=== PATIENT | female | born 1950 | race African-American/Black ===

== ENCOUNTER 2020-04-01 18:50 | Inpatient (IN) | payer MEDICARE, MEDICAID ==
[2020-04-01] MEDS ORDERED: RINGERS SOLUTION,LACTATED 1,000 ML IV ONE (18:55)
--- NOTE | 2020-04-01 19:01 | ER Document Report ---
ED General - General Stated Complaint: HIGH BLOOD SUGAR Time Seen by Provider: 04/01/20 18:55 Primary Care Provider: ANGELO MADDOX MD [NO LOCAL MD] - Follow up as needed Notes: This is a 69-year-old female brought in from [facility] with 3 days of worsening altered mental status" suspected sepsis." EMS states she is been hypotensive and they have established a 22-gauge IV and given 200 of fluid. They attempted an IV at the facility but infiltrated so she received subcutaneous fluids. Based on the front page of her packet from the facility her sodium was measured at 161 in the presence of a glucose of 800 within the last 24 hours. She is unable to give any history but has a DNR form in her packet. TRAVEL OUTSIDE OF THE [place] IN LAST 30 DAYS: No - Related Data Allergies/Adverse Reactions: PPD black rubber mix Allergy (Verified 06/13/18 20:50) Past Medical History - General Information source: Emergency Med Personnel - Social History Smoking Status: Unknown if Ever Smoked Family History: Other - Unobtainable - Past Medical History Cardiac Medical History: Reports: Hx Hypertension Endocrine Medical History: Reports: Hx Diabetes Mellitus Type 2 Renal/ Medical History: Denies: Hx Peritoneal Dialysis Psychiatric Medical History: Reports: Hx Dementia, Hx Depression Review of Systems - Review of Systems Notes: REVIEW OF SYSTEMS Mental status PHYSICAL EXAMINATION General: Ill-appearing Head: Atraumatic, normocephalic ENT: Mouth normal, oropharynx moist, no exudates or tonsillar enlargement Eyes: Conjunctiva normal, pupils equal, lids normal Neck: No JVD, supple, no guarding CVS: Tachycardic. Slightly pale. Resp: No resp distress, equal and normal breath sounds bilaterally GI: Nondistended, soft, no tenderness to palpation, no rebound or guarding Ext: No deformities, no edema, normal range of motion in upper and lower ext Back: No CVA or midline TTP Skin: Decreased turgor Lymphatic: No lymphadeopathy noted Neuro: Kal's and nods off. Face appears symmetric but is not following commands. Opens eyes to loud voice and does not speak. Physical Exam - Vital signs Vitals: Pulse Ox 93 04/01/20 21:20 Course - Re-evaluation Re-evalutation: 04/01/20 19:01 Elderly female patient with likely diabetes presents with dehydration hypotension hyperglycemia hyponatremia which may be severe and to be leading to cerebral edema. Dehydration and sepsis are still in the differential. Will check full attempt to decide if antibiotics are indicated but until then will get aggressive IV access and fluids. Hypotension is severe enough to require resuscitation without regard for sodium overcorrection and resultant complication. 04/01/20 22:57 Sugar going up despite fluid and insulin. Urine, which took at least 2 and half hours to obtain does show infection, so at this time I will diagnose her with sepsis, give antibiotics and culture her. She is hemodynamically stable at this time. Potassium is normal and may drop further with insulin. I discussed her with Dr. Mariee from the hospitalist service, and we together agreed to try insulin boluses, because there is no space in the hospital to run an insulin drip. He will write inpatient orders and asked the ED nurses to go from there. - Vital Signs Vital signs: Temp Pulse Resp BP Pulse Ox 96 04/01/20 22:52 - Laboratory Result Diagrams: 04/01/20 21:04 04/01/20 19:30 Laboratory results interpreted by me: 04/01/20 04/01/20 04/01/20 19:15 19:30 19:30 RBC Hct MCV MCH MCHC RDW Plt Count PT 20.4 H VBG pH Sodium 149.5 H Chloride 122 H Carbon Dioxide 18 L BUN 83 H Creatinine 2.73 H Est GFR ( Amer) 21 L Est GFR (MDRD) Non-Af 17 L Glucose 715 H* POC Glucose Serum Osmolality Lactic Acid 3.6 H Calcium 8.0 L ALT 46 H Total Protein 6.0 L Albumin 2.6 L Urine Protein Urine Glucose (UA) Urine Blood Urine Urobilinogen Ur Leukocyte Esterase Urine Ascorbic Acid 04/01/20 04/01/20 04/01/20 19:30 21:04 21:04 RBC Hct MCV MCH MCHC RDW Plt Count PT VBG pH 7.24 L Sodium Chloride Carbon Dioxide BUN Creatinine Est GFR ( Amer) Est GFR (MDRD) Non-Af Glucose POC Glucose Serum Osmolality 384 H Lactic Acid 3.9 H Calcium ALT Total Protein Albumin Urine Protein Urine Glucose (UA) Urine Blood Urine Urobilinogen Ur Leukocyte Esterase Urine Ascorbic Acid 04/01/20 04/01/20 04/01/20 21:04 22:29 22:42 RBC 6.51 H Hct 50.0 H MCV 77 L MCH 23.8 L MCHC 31.0 L RDW 17.7 H Plt Count 102 L PT VBG pH Sodium Chloride Carbon Dioxide BUN Creatinine Est GFR ( Amer) Est GFR (MDRD) Non-Af Glucose POC Glucose > 550 H* Serum Osmolality Lactic Acid Calcium ALT Total Protein Albumin Urine Protein 100 H Urine Glucose (UA) >=500 H Urine Blood LARGE H Urine Urobilinogen 2.0 H Ur Leukocyte Esterase LARGE H Urine Ascorbic Acid 40 H Critical Care Note - Critical Care Note Total time excluding time spent on procedures (mins): 34 Comments: The above patient is critically ill. Not including procedures, but including direct re-evaluations, speaking with patient and/or consultants, interpreting results, and documenting, I spent the total amount of minute listed listed above on critical care time Discharge - Discharge Clinical Impression: Hypernatremia Sepsis Qualifiers: Sepsis type: sepsis due to unspecified organism Sepsis acute organ dysfunction status: unspecified Qualified Code(s): A41.9 - Sepsis, unspecified organism Condition: Fair Disposition: ADMITTED INPATIENT Unit Admitted: Medical Floor Referrals: ANGELO MADDOX MD [NO LOCAL MD] - Follow up as needed
[2020-04-01 19:57] LABS: INTERNATIONAL RATION (INR) 1.72; PROTHROMBIN TIME 20.4 SEC (11.4-15.4)
[2020-04-01 20:06] LABS: ALBUMIN 2.6 g/dL (3.5-5.0); ALKALINE PHOSPHATASE 100 U/L (38-126); ANION GAP 10 (5-19); ASPARTATE AMINO TRANSFERASE 32 U/L (14-36); BILIRUBIN,TOTAL 0.4 mg/dL (0.2-1.3); BLOOD UREA NITROGEN 83 mg/dL (7-20); CARBON DIOXIDE 18 mmol/L (22-30); CHLORIDE 122 mmol/L (98-107); POTASSIUM 4.6 mmol/L (3.6-5.0)
[2020-04-01 20:17] LABS: GLUCOSE 715 mg/dL (75-110)
--- NOTE | 2020-04-01 20:26 | RADIOLOGY REPORT (SQ) ---
INDICATION: Blood sugar suspect cerebral edema. COMPARISON: None CORRELATION: None TECHNIQUE: Noncontrast spiral axial CT images were obtained from the skull base to vertex. This exam was performed according to our departmental dose-optimization program, which includes automated exposure control, adjustment of the mA and/or kV according to patient size and/or use of iterative reconstruction techniques. Suboptimal positioning. Best possible images were obtained FINDINGS: There is no evidence of acute intracranial hemorrhage, midline shift, mass effect or mass lesion. Warren-white differentiation is normal. There is no evidence of acute large territory infarct. Age-related involutional changes are identified. Presumed old small vessel ischemic changes are seen predominantly in a periventricular distribution.. Vascular calcification The visualized paranasal sinuses are grossly clear. The orbits and eyeballs are unremarkable. The mastoid air cells are clear. Skull base and calvarium appear intact. IMPRESSION: No acute intracranial process is identified. Age-related involutional changes are identified. Presumed old small vessel ischemic changes are seen predominantly in a periventricular distribution.
--- NOTE | 2020-04-01 20:33 | EKG REPORT ---
SEVERITY:- ABNORMAL ECG - SINUS TACHYCARDIA LEFT ANTERIOR FASCICULAR BLOCK BORDERLINE T ABNORMALITIES, ANTERIOR LEADS : Confirmed by: Marc Varma MD 01-Apr-2020 20:32:47
[2020-04-01] MEDS ORDERED: INSULIN REG, HUMAN 100 UNIT/ML 3 ML VIAL (PYX) IV ONE ×2 (20:35→23:20)
[2020-04-01 21:21] LABS: VENOUS BLOOD BASE EXCESS -5.4 mmol/L; VENOUS BLOOD HCO3 22.6 mmol/L (20-32); VENOUS BLOOD PCO2 53.5 mmHg (35-63); VENOUS BLOOD PH 7.24 (7.30-7.42)
[2020-04-01 21:30] LABS: ABSOLUTE LYMPHOCYTES (AUTO) 2.2 10^3/uL (0.5-4.7); ABSOLUTE MONOCYTES (AUTO) 0.3 10^3/uL (0.1-1.4); BASOPHILS % (AUTO) 0.4 % (0-2); EOSINOPHILS % (AUTO) 0.2 % (0-6); HEMOGLOBIN 15.5 g/dL (12.0-15.5); LYMPHOCYTES % (AUTO) 23.4 % (13-45); MEAN CORPUSCULAR HEMOGLOBIN 23.8 pg (27.0-33.4); MEAN CORPUSCULAR VOLUME 77 fl (80-97); PLATELET COUNT 102 10^3/uL (150-450); RED BLOOD COUNT 6.51 10^6/uL (3.72-5.28); RED CELL DISTRIBUTION WIDTH 17.7 % (11.5-14.0); TOTAL CELLS COUNTED % (AUTO) 100 %; WHITE BLOOD COUNT 9.6 10^3/uL (4.0-10.5)
[2020-04-01] MEDS ORDERED: NORMAL SALINE 1000 ML 1,000 ML IV ONE (22:03)
[2020-04-01 22:50] LABS: APPEARANCE,URINE CLOUDY; BILIRUBIN,URINE NEGATIVE (NEGATIVE); COLOR,URINE AMBER; GLUCOSE, URINE >=500 mg/dL (NEGATIVE); KETONES,URINE NEGATIVE (NEGATIVE); LEUKOCYTE ESTERASE,URINE LARGE (NEGATIVE); NITRITE,URINE NEGATIVE (NEGATIVE); PROTEIN,URINE 100 mg/dL (NEGATIVE); URINE SPECIFIC GRAVITY 1.023
[2020-04-01] MEDS ORDERED: CEFTRIAXONE 1 GM/D5W RTU 1 GM/50 ML RTUPB IV ONE (22:52)
[2020-04-01 23:02] LABS: OSMOLALITY,URINE 488 mOsm/kg (300-900)
[2020-04-01 23:08] LABS: URINE SODIUM 60 mmol/L (30-90)
[2020-04-01] MEDS ORDERED: POTASSI CL 20 MEQ/NS 1L 1,000 ML IV PRN (23:14)
[2020-04-01] MEDS ORDERED: MAGNESIUM HYDROXIDE SUSP 30 ML UDCUP PO PRN (23:14)
[2020-04-01] MEDS ORDERED: ONDANSETRON HCL INJ/PF 4 MG/2 ML SDV IV PRN (23:14)
[2020-04-01] MEDS ORDERED: MAG HYDROX/AL HYDROX/SIMETH SUSP 30 ML UDCUP PO PRN (23:14)
[2020-04-01] MEDS ORDERED: GLUCAGON,HUMAN RECOMB 1 MG INJ IM PRN (23:19)
[2020-04-01] MEDS ORDERED: DEXTROSE 50%-WATER 25 GM/50 ML DISP.SYRIN IV PRN ×2 (23:19)
[2020-04-01] MEDS ORDERED: DEXTROSE 40% GEL 15 GM TUBE PO PRN ×2 (23:19)
[2020-04-01] MEDS ORDERED: NORMAL SALINE 100 ML with INSULIN REGULAR, HUMAN 100 UNIT IV PRN ×2 (23:19)
[2020-04-01] MEDS ORDERED: ACETAMINOPHEN 325 MG TABLET PO PRN (23:21)
[2020-04-01] MEDS ORDERED: GUAIFENESIN SYRP 200 MG/10 ML UDC PO PRN (23:21)
[2020-04-01] MEDS ORDERED: LORAZEPAM INJ 2 MG/1 ML VIAL IV PRN (23:21)
[2020-04-01] MEDS ORDERED: ACETAMINOPHEN 650 MG SUPP.RECT PR PRN (23:27)
[2020-04-01] MEDS ORDERED: PANTOPRAZOLE SODIUM 40 MG VIAL IV ONE (23:45)
[2020-04-02] MEDS: INSULIN REG, HUMAN 100 UNIT/ML 3 ML VIAL (PYX) SUBCUT SCH ×3 (01:28→08:28)
[2020-04-02] MEDS ORDERED: PANTOPRAZOLE SODIUM 40 MG VIAL IV ONE (02:49)
[2020-04-02] MEDS: HEPARIN SOD (PORCINE) 5,000 UNIT/ML 1 ML VIAL SUBCUT SCH ×3 (05:31→21:14)
--- NOTE | 2020-04-02 06:22 | PDOC H&P ---
History of Present Illness Admission Date/PCP: 04/01/2020 23:31 AGNES LITTLE MD Patient complains of: Altered mental status History of Present Illness: STEVENSON GORDON is a 69 year old female who [facility] the [facility] with a 3-day history of altered mental status. long term staff reports patient has been gradually less alert and more lethargic than normal ove r the last 3 days. No additional associated or accompanying signs and symptoms were reported by the nursing facility staff. Blood work was obtained at the nursing facility and the patient was found to have a sodium of 161 with a glucose of 800. She was subsequently transferred to the hospital for further evaluation and treatment. Patient has severe dementia and is unable to contribute to her medical care. She is noted to have had numerous prior similar episodes with urinary tract infections. In the emergency room she was found to have a moderate hypernatremia and severe hyperglycemia. She was noted to be non-Ketotic but her urine showed significant pyuria. Her renal functions were noted to be elevated and she was subsequently admitted to the hospital for further evaluation and treatment after initiation of serial lactic acid measurements, IV fluids, IV insulin and IV Rocephin. Patient is noted to be DNR/DNI status from her accompanying paperwork. Past Medical History Past Medical History: Due to the patient's severe dementia past medical history, past surgical history, social history and family history are obtained from the most reliable available source. Cardiac Medical History: Reports: Hypertension Denies: Atrial Fibrillation, Congestive Heart Failure, Coronary Artery Disease, Myocardial Infarction Pulmonary Medical History: Denies: Asthma, Chronic Obstructive Pulmonary Disease (COPD) EENT Medical History: Denies: Cataracts, Ears - Hearing aids Neurological Medical History: Denies: Hemorrhagic CVA, Ischemic CVA, Seizures Endocrine Medical History: Reports: Diabetes Mellitus Type 2 Denies: Diabetes Mellitus Type 1, Hyperthyroidism, Hypothyroidism Renal/ Medical History: Denies: Chronic Kidney Disease, Nephrolithiasis Malignancy Medical History: Reports: None GI Medical History: Denies: Cirrhosis, Hepatitis Musculoskeltal Medical History: Denies: Arthritis, Gout Skin Medical History: Denies: Eczema, Psoriasis Psychiatric Medical History: Reports: Dementia, Depression Denies: Alcohol Dependency, Substance Abuse, Tobacco Dependency Traumatic Medical History: Reports: None Hematology: Denies: Anemia, Bleeding Tendencies Infectious Medical History: Reports: None Past Surgical History Past Surgical History: Due to the patient's severe dementia past medical history, past surgical history, social history and family history are obtained from the most reliable available source. Past Surgical History: Reports: None Social History Information Source: Emergency Med Personnel, [facility] Records Lives with: Prison Smoking Status: Unknown if Ever Smoked Electronic Cigarette use?: No Frequency of Alcohol Use: None Hx Recreational Drug Use: No Drugs: None Hx Prescription Drug Abuse: No Past Social History Note: Due to the patient's severe dementia past medical history, past surgical history, social history and family history are obtained from the most reliable available source. - Advance Directive Resuscitation Status: Do Not Resuscitate Surrogate healthcare decision maker:: Marika Gordon Family History Family History: Other - No family history is available in current records Family History: Due to the patient's severe dementia past medical history, past surgical history, social history and family history are obtained from the most reliable available source. Parental Family History Reviewed: No Children Family History Reviewed: No Sibling(s) Family History Reviewed.: No Medication/Allergy Home Medications: Acetaminophen [Tylenol 650 mg Supp] 975 mg IL Q6HP PRN 06/13/18 Calcium Carbonate [Calcium] 600 mg PO BID 06/13/18 Lactulose [Constulose 10 gm/15 mL Oral Solution] 5 gm PO QHS MDD HOLD FOR DIARRHEA 06/13/18 Pravastatin Sodium [Pravachol] 40 mg PO QHS 06/13/18 Promethazine HCl [Phenergan Inj 25 mg/1 ml Vial] 25 mg IM Q6HP PRN 06/13/18 Cephalexin Monohydrate [Keflex 500 mg Capsule] 500 mg PO BID #14 capsule 06/15/18 Saccharomyces Boulardii [Florastor] 250 mg PO BID #14 capsule 06/15/18 Allergies/Adverse Reactions: PPD black rubber mix Allergy (Verified 06/13/18 20:50) Review of Systems ROS unobtainable: Due to mental status - Severe dementia Physical Exam Vital Signs: Temp Pulse Resp BP Pulse Ox 96 04/01/20 22:52 Intake & Output 03/30/20 03/31/20 04/01/20 23:59 23:59 23:59 Intake Total 1000 Balance 1000 General appearance: PRESENT: no acute distress, cooperative, other - Confused and lethargic Head exam: PRESENT: atraumatic, normocephalic Eye exam: PRESENT: conjunctiva pink. ABSENT: conjunctival injection, scleral icterus Ear exam: PRESENT: normal external ear exam. ABSENT: bleeding, drainage Mouth exam: PRESENT: dry mucosa, neck supple Neck exam: ABSENT: thyromegaly, tracheal deviation Respiratory exam: PRESENT: clear to auscultation gisele, symmetrical, unlabored Cardiovascular exam: PRESENT: RRR, tachycardia. ABSENT: clicks, gallop, rubs Pulses: PRESENT: normal radial pulses, normal dorsalis pedis pul Vascular exam: PRESENT: normal capillary refill. ABSENT: pallor GI/Abdominal exam: PRESENT: normal bowel sounds, soft Rectal exam: PRESENT: deferred Extremities exam: ABSENT: joint swelling, pedal edema Musculoskeletal exam: ABSENT: deformity, dislocation Neurological exam: PRESENT: altered - Confused, other - Lethargic Psychiatric exam: PRESENT: other - Confused and lethargic Skin exam: PRESENT: dry, intact, warm. ABSENT: jaundice, rash, urticaria Results Laboratory Results: 04/01/20 21:04 04/01/20 04/01/20 04/01/20 19:15 19:15 19:30 WBC Cancelled RBC Cancelled Hgb Cancelled Hct Cancelled MCV Cancelled MCH Cancelled MCHC Cancelled RDW Cancelled Plt Count Cancelled Seg Neutrophils % Cancelled VBG pH VBG pCO2 VBG HCO3 VBG Base Excess Sodium 149.5 H Potassium 4.6 Chloride 122 H Carbon Dioxide 18 L Anion Gap 10 BUN 83 H Creatinine 2.73 H Est GFR ( Amer) 21 L Glucose 715 H* Serum Osmolality Lactic Acid 3.6 H Calcium 8.0 L Total Bilirubin 0.4 AST 32 Alkaline Phosphatase 100 Total Protein 6.0 L Albumin 2.6 L Urine Color Urine Appearance Urine pH Ur Specific [place] Urine Protein Urine Glucose (UA) Urine Ketones Urine Blood Urine Nitrite Ur Leukocyte Esterase Urine WBC (Auto) Urine RBC (Auto) Urine Osmolality Blood Type Antibody Screen 04/01/20 04/01/20 04/01/20 19:30 19:30 21:04 WBC RBC Hgb Hct MCV MCH MCHC RDW Plt Count Seg Neutrophils % VBG pH Cancelled VBG pCO2 Cancelled VBG HCO3 Cancelled VBG Base Excess Cancelled Sodium Potassium Chloride Carbon Dioxide Anion Gap BUN Creatinine Est GFR ( Amer) Glucose Serum Osmolality 384 H Lactic Acid 3.9 H Calcium Total Bilirubin AST Alkaline Phosphatase Total Protein Albumin Urine Color Urine Appearance Urine pH Ur Specific [place] Urine Protein Urine Glucose (UA) Urine Ketones Urine Blood Urine Nitrite Ur Leukocyte Esterase Urine WBC (Auto) Urine RBC (Auto) Urine Osmolality Blood Type Antibody Screen 04/01/20 04/01/20 04/01/20 21:04 21:04 21:04 WBC 9.6 RBC 6.51 H Hgb 15.5 Hct 50.0 H MCV 77 L MCH 23.8 L MCHC 31.0 L RDW 17.7 H Plt Count 102 L Seg Neutrophils % 73.0 VBG pH 7.24 L VBG pCO2 53.5 VBG HCO3 22.6 VBG Base Excess -5.4 Sodium Potassium Chloride Carbon Dioxide Anion Gap BUN Creatinine Est GFR ( Amer) Glucose Serum Osmolality Lactic Acid Calcium Total Bilirubin AST Alkaline Phosphatase Total Protein Albumin Urine Color Urine Appearance Urine pH Ur Specific [place] Urine Protein Urine Glucose (UA) Urine Ketones Urine Blood Urine Nitrite Ur Leukocyte Esterase Urine WBC (Auto) Urine RBC (Auto) Urine Osmolality Blood Type O POSITIVE Antibody Screen NEGATIVE 04/01/20 04/01/20 22:29 22:29 WBC RBC Hgb Hct MCV MCH MCHC RDW Plt Count Seg Neutrophils % VBG pH VBG pCO2 VBG HCO3 VBG Base Excess Sodium Potassium Chloride Carbon Dioxide Anion Gap BUN Creatinine Est GFR ( Amer) Glucose Serum Osmolality Lactic Acid Calcium Total Bilirubin AST Alkaline Phosphatase Total Protein Albumin Urine Color FCO Urine Appearance CLOUDY Urine pH 5.0 Ur Specific [place] 1.023 Urine Protein 100 H Urine Glucose (UA) >=500 H Urine Ketones NEGATIVE Urine Blood LARGE H Urine Nitrite NEGATIVE Ur Leukocyte Esterase LARGE H Urine WBC (Auto) >182 Urine RBC (Auto) 119 Urine Osmolality 488 Blood Type Antibody Screen Impressions: Head CT 04/01/20 18:56 IMPRESSION: No acute intracranial process is identified. Age-related involutional changes are identified. Presumed old small vessel ischemic changes are seen predominantly in a periventricular distribution. Assessment and Plan - Diagnosis (1) Urinary tract infection Qualifiers: Urinary tract infection type: site unspecified Hematuria presence: with hematuria Qualified Code(s): N39.0 - Urinary tract infection, site not specified; R31.9 - Hematuria, unspecified Is this a current diagnosis for this admission?: Yes (2) SIRS with acute organ dysfunction due to infectious process Qualifiers: Severe sepsis acute organ dysfunction type: acute renal failure Acute renal failure type: unspecified Severe sepsis shock status: without septic shock Is this a current diagnosis for this admission?: Yes (3) Acute kidney injury (nontraumatic) Is this a current diagnosis for this admission?: Yes (4) Metabolic acidosis due to diabetes mellitus Is this a current diagnosis for this admission?: Yes (5) Hypernatremia Is this a current diagnosis for this admission?: Yes (6) Hyperglycemia due to type 2 diabetes mellitus Qualifiers: 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 She will be treated with IV fluid utilizing normal saline with 20 mEq KCl per liter initially at 250 mL/h. She will be followed with every 4 hours Accu-Cheks and a every 4 hours sliding scale insulin for hyperglycemia with a hypoglycemic protocol in place. She will be on a diabetic diet when she is able to take oral nutrition. She will receive IV Rocephin 1 g every 24 hours. Serial lactic acid levels will be obtained. Daily CBCs, metabolic profiles and magnesium levels will be obtained. Additional laboratory and/or radiographic evaluations will be obtained as appropriate. The patient will use Ativan 1 mg IV every 4 hours as needed for anxiety or restlessness. A VBG will be repeated in the morning. Nephrology consultation may be obtained if the patient does not respond rapidly to IV fluids with improving renal functions. - Time Time Spent with patient: Less than 15 minutes Medications reviewed and adjusted accordingly: Yes Anticipated discharge: SNF - Inpatient Certification Based on my medical assessment, after consideration of the patient's comorbidities, presenting symptoms, or acuity I expect that the services needed warrant INPATIENT care.: Yes I certify that my determination is in accordance with my understanding of Medicare's requirements for reasonable and necessary INPATIENT services [42 CFR 412.3e].: Yes Medical Necessity: Significant Comorbidiites Make Outpatient Treatment Too Risky, Need Close Monitoring Due to Risk of Patient Decompensation, Need For IV Fluids, Need for IV Antibiotics, Risk of Complication if Not Cared For in Hospital
[2020-04-02 07:48] LABS: VENOUS BLOOD BASE EXCESS -6.2 mmol/L; VENOUS BLOOD HCO3 20.6 mmol/L (20-32); VENOUS BLOOD PCO2 45.4 mmHg (35-63); VENOUS BLOOD PH 7.27 (7.30-7.42)
[2020-04-02 07:49] LABS: HEMATOCRIT 41.9 % (36.0-47.0); MEAN CORPUSCULAR HEMOGLOBIN 23.1 pg (27.0-33.4); MEAN CORPUSCULAR HGB CONC 30.7 g/dL (32.0-36.0); MEAN CORPUSCULAR VOLUME 75 fl (80-97); RED BLOOD COUNT 5.56 10^6/uL (3.72-5.28); RED CELL DISTRIBUTION WIDTH 17.6 % (11.5-14.0); WHITE BLOOD COUNT 13.7 10^3/uL (4.0-10.5)
[2020-04-02 07:59] LABS: HEMOGLOBIN 12.8 g/dL (12.0-15.5); PLATELET COUNT 69 10^3/uL (150-450)
[2020-04-02 08:09] LABS: BLOOD UREA NITROGEN 78 mg/dL (7-20); CALCIUM 7.8 mg/dL (8.4-10.2); CARBON DIOXIDE 23 mmol/L (22-30); GLUCOSE 322 mg/dL (75-110); POTASSIUM 3.8 mmol/L (3.6-5.0)
[2020-04-02] MEDS ORDERED: RINGERS SOLUTION,LACTATED 1,000 ML IV PRN (08:18)
[2020-04-02 08:22] LABS: CHLORIDE 134 mmol/L (98-107)
[2020-04-02 08:25] LABS: ANION GAP 5 (5-19)
[2020-04-02] MEDS ORDERED: CEFTRIAXONE 1 GM/D5W RTU 1 GM/50 ML RTUPB IV SCH ×2 (10:00→22:00)
[2020-04-02] MEDS: INSULIN LISPRO 100 UNIT/ML 3 ML VIAL SUBCUT SCH ×4 (10:21→22:10)
--- NOTE | 2020-04-02 10:23 | CDI QUERY ---
CDI Query CDI Review: Dear Provider, Please document in progress notes and D/C summary if you agree with the clinical data: ACUTE TOXIC ENCEPHALOPATHY? ACUTE METOBOLIC ENCEPHALOPATHY? ACUTE CONFUSIONAL STATE? PROGRESSION OF DEMENTIA, TYPE Clinical findings: "ALTERED MENTAL STATUS" "MORE LETHARGIC" "SEVERE DEMENTIA" UTI / SIRS / SEPSIS / HYPERNATREMIA... Thanks, Delmi Petersen [phone]
[2020-04-02] MEDS: PANTOPRAZOLE SODIUM 40 MG VIAL IV SCH (10:26)
[2020-04-02] MEDS: DOCUSATE SODIUM 100 MG CAPSULE PO SCH ×2 (10:29→18:53)
[2020-04-02] MEDS: RINGERS SOLUTION,LACTATED 1,000 ML IV PRN ×2 (11:01→12:58)
--- NOTE | 2020-04-02 12:57 | PDOC PROGRESS REPORT ---
Subjective Progress Note for:: 04/02/20 Subjective:: Patient is a 69-year-old female with a past medical history of advanced dementia, hypertension, DM 2, and obesity who is a long-term SNF resident admitted for hyponatremia. Patient was seen on morning rounds. She was found to be awake, alert, speaking incoherently, and quite restless. Per nursing, she was able to eat a half a cup of ice cream earlier this morning. ROS is limited secondary to mental status. She is not noted to be in any acute distress. Reason For Visit: ACUTE KIDNEY INJURY, HYPERNATREMIA, URINARY TRACT Physical Exam Vital Signs: Temp Pulse Resp BP Pulse Ox 97.7 F 75 16 116/60 93 04/02/20 08:00 04/02/20 08:00 04/02/20 08:00 04/02/20 08:00 04/02/20 08:00 Intake & Output 04/01/20 04/02/20 04/03/20 06:59 06:59 06:59 Intake Total 2049 1000 Output Total 100 Balance 1950 1000 Weight 68 kg General appearance: PRESENT: no acute distress, obese, well-developed, well- nourished Head exam: PRESENT: atraumatic, normocephalic Eye exam: PRESENT: conjunctiva pink, EOMI, PERRLA. ABSENT: scleral icterus Ear exam: PRESENT: normal external ear exam Mouth exam: PRESENT: dry mucosa - Crusted oral secretions to the patient's teeth and roof of her mouth; dry cracked lips, tongue midline Respiratory exam: PRESENT: clear to auscultation gisele, symmetrical, unlabored. ABSENT: rales, rhonchi, wheezes Cardiovascular exam: PRESENT: RRR. ABSENT: diastolic murmur, rubs, systolic murmur Vascular exam: PRESENT: normal capillary refill GI/Abdominal exam: PRESENT: normal bowel sounds, soft. ABSENT: distended, guarding, mass, organolmegaly, rebound, tenderness Rectal exam: PRESENT: deferred Gentrourinary exam: PRESENT: indwelling catheter Extremities exam: PRESENT: full ROM - Moves all extremities spontaneously. ABSENT: calf tenderness, clubbing, pedal edema Neurological exam: PRESENT: alert, awake, CN II-XII grossly intact, other - Makes eye contact; speaks incoherently, does not answer questions or follow commands. Unclear baseline. ABSENT: oriented to person, oriented to place, oriented to time, oriented to situation, motor sensory deficit Skin exam: PRESENT: dry, intact, warm. ABSENT: cyanosis, rash Results Laboratory Results: 04/02/20 07:18 04/02/20 07:18 04/01/20 04/01/20 04/01/20 19:15 19:15 19:30 WBC Cancelled RBC Cancelled Hgb Cancelled Hct Cancelled MCV Cancelled MCH Cancelled MCHC Cancelled RDW Cancelled Plt Count Cancelled Seg Neutrophils % Cancelled VBG pH VBG pCO2 VBG HCO3 VBG Base Excess Sodium 149.5 H Potassium 4.6 Chloride 122 H Carbon Dioxide 18 L Anion Gap 10 BUN 83 H Creatinine 2.73 H Est GFR ( Amer) 21 L Glucose 715 H* Serum Osmolality Lactic Acid 3.6 H Calcium 8.0 L Magnesium Total Bilirubin 0.4 AST 32 Alkaline Phosphatase 100 Total Protein 6.0 L Albumin 2.6 L Urine Color Urine Appearance Urine pH Ur Specific [place] Urine Protein Urine Glucose (UA) Urine Ketones Urine Blood Urine Nitrite Ur Leukocyte Esterase Urine WBC (Auto) Urine RBC (Auto) Urine Osmolality Blood Type Antibody Screen 04/01/20 04/01/20 04/01/20 19:30 19:30 21:04 WBC RBC Hgb Hct MCV MCH MCHC RDW Plt Count Seg Neutrophils % VBG pH Cancelled VBG pCO2 Cancelled VBG HCO3 Cancelled VBG Base Excess Cancelled Sodium Potassium Chloride Carbon Dioxide Anion Gap BUN Creatinine Est GFR ( Amer) Glucose Serum Osmolality 384 H Lactic Acid 3.9 H Calcium Magnesium Total Bilirubin AST Alkaline Phosphatase Total Protein Albumin Urine Color Urine Appearance Urine pH Ur Specific [place] Urine Protein Urine Glucose (UA) Urine Ketones Urine Blood Urine Nitrite Ur Leukocyte Esterase Urine WBC (Auto) Urine RBC (Auto) Urine Osmolality Blood Type Antibody Screen 04/01/20 04/01/20 04/01/20 21:04 21:04 21:04 WBC 9.6 RBC 6.51 H Hgb 15.5 Hct 50.0 H MCV 77 L MCH 23.8 L MCHC 31.0 L RDW 17.7 H Plt Count 102 L Seg Neutrophils % 73.0 VBG pH 7.24 L VBG pCO2 53.5 VBG HCO3 22.6 VBG Base Excess -5.4 Sodium Potassium Chloride Carbon Dioxide Anion Gap BUN Creatinine Est GFR ( Amer) Glucose Serum Osmolality Lactic Acid Calcium Magnesium Total Bilirubin AST Alkaline Phosphatase Total Protein Albumin Urine Color Urine Appearance Urine pH Ur Specific [place] Urine Protein Urine Glucose (UA) Urine Ketones Urine Blood Urine Nitrite Ur Leukocyte Esterase Urine WBC (Auto) Urine RBC (Auto) Urine Osmolality Blood Type O POSITIVE Antibody Screen NEGATIVE 04/01/20 04/01/20 04/02/20 22:29 22:29 00:54 WBC RBC Hgb Hct MCV MCH MCHC RDW Plt Count Seg Neutrophils % VBG pH VBG pCO2 VBG HCO3 VBG Base Excess Sodium Potassium Chloride Carbon Dioxide Anion Gap BUN Creatinine Est GFR ( Amer) Glucose Serum Osmolality Lactic Acid 6.0 H Calcium Magnesium Total Bilirubin AST Alkaline Phosphatase Total Protein Albumin Urine Color FCO Urine Appearance CLOUDY Urine pH 5.0 Ur Specific [place] 1.023 Urine Protein 100 H Urine Glucose (UA) >=500 H Urine Ketones NEGATIVE Urine Blood LARGE H Urine Nitrite NEGATIVE Ur Leukocyte Esterase LARGE H Urine WBC (Auto) >182 Urine RBC (Auto) 119 Urine Osmolality 488 Blood Type Antibody Screen 04/02/20 04/02/20 04/02/20 07:18 07:18 07:18 WBC 13.7 H RBC 5.56 H Hgb 12.8 D Hct 41.9 MCV 75 L MCH 23.1 L MCHC 30.7 L RDW 17.6 H Plt Count 69 L Seg Neutrophils % VBG pH 7.27 L VBG pCO2 45.4 VBG HCO3 20.6 VBG Base Excess -6.2 Sodium 161.6 H Potassium 3.8 Chloride 134 H Carbon Dioxide 23 Anion Gap 5 BUN 78 H Creatinine 1.72 H Est GFR ( Amer) 35 L Glucose 322 H Serum Osmolality Lactic Acid Calcium 7.8 L Magnesium 2.0 Total Bilirubin AST Alkaline Phosphatase Total Protein Albumin Urine Color Urine Appearance Urine pH Ur Specific [place] Urine Protein Urine Glucose (UA) Urine Ketones Urine Blood Urine Nitrite Ur Leukocyte Esterase Urine WBC (Auto) Urine RBC (Auto) Urine Osmolality Blood Type Antibody Screen Impressions: Head CT 04/01/20 18:56 IMPRESSION: No acute intracranial process is identified. Age-related involutional changes are identified. Presumed old small vessel ischemic changes are seen predominantly in a periventricular distribution. Assessment and Plan - Diagnosis (1) Acute metabolic encephalopathy Is this a current diagnosis for this admission?: Yes Plan: Acute metabolic encephalopathy; multifactorial secondary to profound dehydration, hypernatremia, KAVITHA, UTI, with underlying advanced dementia. Supportive care. Disease specific management as below. (2) Hypernatremia Is this a current diagnosis for this admission?: Yes Plan: Hypovolemic hyponatremia. Worsened. On admission, Corrected Sodium (r/t hyperglycemia) 159-> 165. IV fluids have been adjusted; she is now on LR 450 ml/hr Monitor I&Os closely Serial chemistries. (3) Acute kidney injury (nontraumatic) Is this a current diagnosis for this admission?: Yes Plan: Improved; CR 2.73-1.72 Prerenal secondary to dehydration. Continue generous IV fluids. Avoid nephrotoxic medications as able. Follow-up chemistries. 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 Patient is placed on a , cardiac, consistent carb diet. Currently checking Accu-Cheks every 4 hours and providing sliding scale insulin as needed. Hypoglycemia protocol in place. (5) Urinary tract infection Qualifiers: Urinary tract infection type: site unspecified Hematuria presence: with hematuria Qualified Code(s): N39.0 - Urinary tract infection, site not specified; R31.9 - Hematuria, unspecified Is this a current diagnosis for this admission?: Yes Plan: Urinalysis reveals UTI. Blood and urine cultures pending. She is empirically placed on IV Rocephin. - Time Time Spent with patient: 35 or more minutes Medications reviewed and adjusted accordingly: Yes Anticipated discharge: SNF - vs hospice
[2020-04-02 14:39] LABS: BLOOD UREA NITROGEN 70 mg/dL (7-20); CALCIUM 8.1 mg/dL (8.4-10.2); POTASSIUM 3.3 mmol/L (3.6-5.0)
[2020-04-02 14:44] LABS: CARBON DIOXIDE 25 mmol/L (22-30); CHLORIDE 136 mmol/L (98-107)
[2020-04-02 14:46] LABS: GLUCOSE 55 mg/dL (75-110)
[2020-04-02 14:54] LABS: ANION GAP 1 (5-19)
[2020-04-02] MEDS: DEXTROSE 5%-WATER 1000 ML 1,000 ML IV PRN (15:26)
--- NOTE | 2020-04-02 17:04 | ADVANCED CARE ---
- Diagnosis (1) Acute metabolic encephalopathy Diagnosis Current: Yes (2) Hypernatremia Diagnosis Current: Yes (3) Acute kidney injury (nontraumatic) Diagnosis Current: Yes (4) Hyperglycemia due to type 2 diabetes mellitus Diagnosis Current: Yes (5) Urinary tract infection Diagnosis Current: Yes Attendance: The patient's son, Marika Gordon, by phone. Resuscitation Status: Do Not Resuscitate Discussion: We discussed the patient's admitting diagnoses, clinical progress, and overall poor prognosis given patient's advanced dementia and combined dehydration/KAVITHA/hypernatremia being a potential sign of end-of-life as the patient's oral intake begins to decrease. We discussed options for continued medical management, aggressive interventions should her condition worsen, or transition to hospice services. Mr. Gordon requests that we continue conservative interventions with goal of the patient becoming stabilized enough to return to [facility] where she is a long-term resident. His ultimate wishes is that she do well enough that he be able to visit her at some point prior to her natural (has not been able to visit his mother for several months due to COVID policies). Should her condition worsen, he does not wish for aggressive interventions at this time. He also expresses that he would like her to return on comfort care/hospice measures as she has, "suffered enough." Care Planning Goals: DNR/DNI Conservative medical management. Discharge with Hospice services. Time Spent: 20 min
[2020-04-03] MEDS: INSULIN LISPRO 100 UNIT/ML 3 ML VIAL SUBCUT SCH ×6 (01:26→23:50)
--- NOTE | 2020-04-03 03:50 | Operative Report ---
Operative Report DATE OF SURGERY: 04/03/20 PREOPERATIVE DIAGNOSIS: Critical need for intravenous access. POSTOPERATIVE DIAGNOSIS: Same OPERATION: Left femoral triple-lumen central venous catheter placement SURGEON: FATEMEH TREVINO ANESTHESIA: Local TISSUE REMOVED OR ALTERED: None COMPLICATIONS: None ESTIMATED BLOOD LOSS: Minimal INTRAOPERATIVE FINDINGS: None PROCEDURE: Informed consent was obtained. Procedure was done at the patient's bedside. Patient was not entirely cooperative and she moved quite a bit therefore I felt that a jugular stick would be very hazardous in this patient. Therefore femoral approach was taken. Patient's right groin was prepped and draped in usual sterile fashion. Local anesthetic was administered. Attempt at cannulating the right femoral vein failed despite multiple attempts. The femoral artery was cannulated and the needle quickly withdrawn and pressure applied. With the ultrasound probe I could not visualize the femoral vein on this side. This site was abandoned. The left femoral region was prepped and draped in usual sterile fashion local anesthetic was administered in the left femoral vein was able to be cannulated. Of note ultrasound had been done and the vein site was marked with the ultrasound. Using the Seldinger technique triple-lumen central venous catheter was placed into the left femoral vein and it was sutured in place. It withdrew dark blood and flushed easily. Dressings were applied. Patient tolerated procedure well with no apparent complications.
[2020-04-03] MEDS: PANTOPRAZOLE SODIUM 40 MG VIAL IV SCH ×3 (04:19→22:11)
[2020-04-03] MEDS: DEXTROSE 5%-WATER 1000 ML 1,000 ML IV PRN ×2 (04:55→15:11)
[2020-04-03] MEDS: HEPARIN SOD (PORCINE) 5,000 UNIT/ML 1 ML VIAL SUBCUT SCH ×3 (05:18→22:13)
[2020-04-03 06:21] LABS: BLOOD UREA NITROGEN 53 mg/dL (7-20); CALCIUM 7.9 mg/dL (8.4-10.2); CHLORIDE 134 mmol/L (98-107); GLUCOSE 239 mg/dL (75-110); POTASSIUM 3.4 mmol/L (3.6-5.0)
[2020-04-03 06:32] LABS: HEMATOCRIT 36.4 % (36.0-47.0); HEMOGLOBIN 11.5 g/dL (12.0-15.5); MEAN CORPUSCULAR HEMOGLOBIN 23.6 pg (27.0-33.4); MEAN CORPUSCULAR HGB CONC 31.6 g/dL (32.0-36.0); MEAN CORPUSCULAR VOLUME 75 fl (80-97); RED BLOOD COUNT 4.88 10^6/uL (3.72-5.28); RED CELL DISTRIBUTION WIDTH 17.7 % (11.5-14.0); WHITE BLOOD COUNT 10.4 10^3/uL (4.0-10.5)
[2020-04-03 06:33] LABS: CARBON DIOXIDE 26 mmol/L (22-30)
[2020-04-03 06:34] LABS: ANION GAP 0 (5-19)
[2020-04-03 07:04] LABS: PLATELET COUNT 40 10^3/uL (150-450)
[2020-04-03] MEDS: DOCUSATE SODIUM 100 MG CAPSULE PO SCH ×2 (10:14→17:26)
[2020-04-03] MEDS: CEFTRIAXONE 1 GM/D5W RTU 1 GM/50 ML RTUPB IV SCH (10:15)
--- NOTE | 2020-04-03 11:11 | PDOC PROGRESS REPORT ---
Subjective Progress Note for:: 04/03/20 Subjective:: Patient is a 69-year-old female with a past medical history of advanced dementia, hypertension, DM 2, and obesity who is a long-term SNF resident admitted for hyponatremia. Patient was seen on morning rounds. She was found to be awake, alert, speaking incoherently, but resting comfortably. Per nursing, she is not taking p.o. this morning. ROS is limited secondary to mental status. She is not noted to be in any acute distress. Discussed plan with nursing. Reason For Visit: ACUTE KIDNEY INJURY, HYPERNATREMIA, URINARY TRACT Physical Exam Vital Signs: Temp Pulse Resp BP Pulse Ox 97.8 F 102 H 19 102/60 94 04/03/20 08:00 04/03/20 08:00 04/03/20 08:00 04/03/20 08:00 04/03/20 08:00 Intake & Output 04/02/20 04/03/20 04/04/20 06:59 06:59 06:59 Intake Total 2050 3878 Output Total 100 1200 Balance 1950 2678 Weight 68 kg 69.4 kg General appearance: PRESENT: no acute distress, well-developed, well-nourished - overweight Head exam: PRESENT: atraumatic, normocephalic Eye exam: PRESENT: conjunctiva pink, EOMI, PERRLA. ABSENT: scleral icterus Ear exam: PRESENT: normal external ear exam Mouth exam: PRESENT: dry mucosa - Crusted oral secretions to the patient's teeth; dry cracked lips, tongue midline Respiratory exam: PRESENT: clear to auscultation gisele, symmetrical, unlabored. ABSENT: rales, rhonchi, wheezes Cardiovascular exam: PRESENT: RRR. ABSENT: diastolic murmur, rubs, systolic murmur Vascular exam: PRESENT: normal capillary refill GI/Abdominal exam: PRESENT: normal bowel sounds, soft. ABSENT: distended, guarding, mass, organolmegaly, rebound, tenderness Rectal exam: PRESENT: deferred Gentrourinary exam: PRESENT: indwelling catheter Extremities exam: PRESENT: full ROM - Moves all extremities spontaneously. ABSENT: calf tenderness, clubbing, pedal edema Neurological exam: PRESENT: alert, awake, CN II-XII grossly intact, other - Makes eye contact; speaks incoherently, does not answer questions or follow commands. Likely at baseline per family.. ABSENT: motor sensory deficit Psychiatric exam: PRESENT: appropriate affect, normal mood. ABSENT: homicidal ideation, suicidal ideation Skin exam: PRESENT: dry, intact, warm. ABSENT: cyanosis, rash Results Laboratory Results: 04/03/20 06:08 04/03/20 05:15 04/02/20 04/02/20 04/03/20 14:04 14:04 05:15 WBC RBC Hgb Hct MCV MCH MCHC RDW Plt Count Sodium 161.9 H 159.7 H Potassium 3.3 L 3.4 L Chloride 136 H 134 H Carbon Dioxide 25 26 Anion Gap 1 L 0 L BUN 70 H 53 H Creatinine 1.29 H 1.01 Est GFR ( Amer) 49 L > 60 Glucose 55 L 239 H Lactic Acid 3.2 H Calcium 8.1 L 7.9 L Magnesium 1.8 04/03/20 06:08 WBC 10.4 RBC 4.88 Hgb 11.5 L Hct 36.4 MCV 75 L MCH 23.6 L MCHC 31.6 L RDW 17.7 H Plt Count 40 L Sodium Potassium Chloride Carbon Dioxide Anion Gap BUN Creatinine Est GFR ( Amer) Glucose Lactic Acid Calcium Magnesium 04/01/20 19:30 Blood Blood Culture (PCR) - Final Staphylococcus Species Impressions: Head CT 04/01/20 18:56 IMPRESSION: No acute intracranial process is identified. Age-related involutional changes are identified. Presumed old small vessel ischemic changes are seen predominantly in a periventricular distribution. Assessment and Plan - Diagnosis (1) Acute metabolic encephalopathy Is this a current diagnosis for this admission?: Yes Plan: Acute metabolic encephalopathy; multifactorial secondary to profound dehydra tion, hypernatremia, KAVITHA, UTI, with underlying advanced dementia. Improved; likely approaching baseline. Supportive care. Disease specific management as below. (2) Hypernatremia Is this a current diagnosis for this admission?: Yes Plan: Hypovolemic hyponatremia. Persists; partly r/t to loss of IV access and going without IVF for several hours. Continues to have poor p.o. intake. Corrected Sodium (r/t hyperglycemia) 159-> 165-> 161-> 162. Continue monitoring serial chemistries and adjusting IV fluids as indicated. Encourage p.o. fluids. Monitor I&Os closely (3) Acute kidney injury (nontraumatic) Is this a current diagnosis for this admission?: Yes Plan: Improved; CR 2.73-> 1.72-> 1.01 Prerenal secondary to dehydration. Continue generous IV fluids. Encourage p.o. fluids. Avoid nephrotoxic medications as able. Follow-up chemistries. 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 Does not appear that the patient is on medications for her diabetes at home; would recommend continuing SSI on discharge (do not recommend long acting or oral as the patient's p.o. intake is not consistent). Currently checking Accu-Cheks every 4 hours and providing sliding scale insulin as needed. Hypoglycemia protocol in place. (5) Urinary tract infection Qualifiers: Urinary tract infection type: site unspecified Hematuria presence: with hematuria Qualified Code(s): N39.0 - Urinary tract infection, site not specified; R31.9 - Hematuria, unspecified Is this a current diagnosis for this admission?: Yes Plan: Urinalysis reveals UTI. Blood culture with multiple Gram poitive organisms. Urine cultures show Proteus mirabilis. She is empirically placed on IV Rocephin; day #2. (6) Bacteremia Is this a current diagnosis for this admission?: Yes Plan: Blood culture with multiple Gram positive organisms; likely contaminants. Will repeat blood cultures. - Time Time Spent with patient: 35 or more minutes Medications reviewed and adjusted accordingly: Yes Anticipated discharge: SNF - w/ hospice
[2020-04-03 15:29] LABS: BLOOD UREA NITROGEN 45 mg/dL (7-20); CALCIUM 7.7 mg/dL (8.4-10.2); CHLORIDE 132 mmol/L (98-107); GLUCOSE 283 mg/dL (75-110); POTASSIUM 3.3 mmol/L (3.6-5.0)
[2020-04-03 15:49] LABS: CARBON DIOXIDE 24 mmol/L (22-30)
[2020-04-03] MEDS: POTASSI CL 20 MEQ/50 ML RIDER 20 MEQ/50 ML RTUPB IV SCH ×2 (16:21→18:26)
[2020-04-04] MEDS: DEXTROSE 5%-WATER 1000 ML 1,000 ML IV PRN ×2 (02:05→10:37)
[2020-04-04 02:56] LABS: BLOOD UREA NITROGEN 31 mg/dL (7-20); CALCIUM 7.8 mg/dL (8.4-10.2); GLUCOSE 203 mg/dL (75-110); POTASSIUM 3.3 mmol/L (3.6-5.0)
[2020-04-04 03:02] LABS: CARBON DIOXIDE 24 mmol/L (22-30); CHLORIDE 129 mmol/L (98-107)
[2020-04-04 03:15] LABS: ANION GAP 1 (5-19)
[2020-04-04] MEDS: HEPARIN SOD (PORCINE) 5,000 UNIT/ML 1 ML VIAL SUBCUT SCH ×2 (06:11→14:58)
[2020-04-04] MEDS: INSULIN LISPRO 100 UNIT/ML 3 ML VIAL SUBCUT SCH ×3 (06:23→17:04)
[2020-04-04 06:42] LABS: HEMATOCRIT 34.7 % (36.0-47.0); HEMOGLOBIN 11.1 g/dL (12.0-15.5); MEAN CORPUSCULAR HEMOGLOBIN 23.7 pg (27.0-33.4); MEAN CORPUSCULAR VOLUME 74 fl (80-97); RED BLOOD COUNT 4.67 10^6/uL (3.72-5.28); RED CELL DISTRIBUTION WIDTH 17.5 % (11.5-14.0); WHITE BLOOD COUNT 7.6 10^3/uL (4.0-10.5)
[2020-04-04 06:58] LABS: BLOOD UREA NITROGEN 28 mg/dL (7-20); CALCIUM 7.7 mg/dL (8.4-10.2); CARBON DIOXIDE 25 mmol/L (22-30); CHLORIDE 127 mmol/L (98-107); GLUCOSE 263 mg/dL (75-110); POTASSIUM 3.4 mmol/L (3.6-5.0)
[2020-04-04 07:01] LABS: PLATELET COUNT 31 10^3/uL (150-450)
[2020-04-04 07:05] LABS: ANION GAP -2 (5-19)
[2020-04-04] MEDS: POTASSI CL 20 MEQ/50 ML RIDER 20 MEQ/50 ML RTUPB IV SCH ×2 (08:28→10:30)
[2020-04-04 09:10] LABS: BLOOD UREA NITROGEN 26 mg/dL (7-20); CALCIUM 7.5 mg/dL (8.4-10.2); CARBON DIOXIDE 25 mmol/L (22-30); CHLORIDE 125 mmol/L (98-107); GLUCOSE 280 mg/dL (75-110); POTASSIUM 3.3 mmol/L (3.6-5.0)
[2020-04-04] MEDS: DOCUSATE SODIUM 100 MG CAPSULE PO SCH ×2 (10:29→17:05)
[2020-04-04] MEDS: CEFTRIAXONE 1 GM/D5W RTU 1 GM/50 ML RTUPB IV SCH (10:30)
[2020-04-04] MEDS: PANTOPRAZOLE SODIUM 40 MG VIAL IV SCH ×2 (10:31→21:58)
[2020-04-04] MEDS ORDERED: 1/2 NORMAL SALINE 1,000 ML IV PRN (10:41)
--- NOTE | 2020-04-04 10:54 | PDOC PROGRESS REPORT ---
Subjective Progress Note for:: 04/04/20 Subjective:: Patient is a 69-year-old female with a past medical history of advanced dementia, hypertension, DM 2, and obesity who is a long-term SNF resident admitted for hyponatremia. Patient was seen on morning rounds. She was found to be awake, alert, speaking incoherently, but resting comfortably. Did make eye contact and attempt to answer questions. Per nursing, continues to have poor oral intake. ROS is limited secondary to mental status. She is not noted to be in any acute distress. Reason For Visit: ACUTE KIDNEY INJURY, HYPERNATREMIA, URINARY TRACT Physical Exam Vital Signs: Temp Pulse Resp BP Pulse Ox 98.4 F 55 L 16 140/60 H 88 L 04/04/20 08:00 04/04/20 08:00 04/04/20 08:00 04/04/20 08:00 04/04/20 08:00 Intake & Output 04/03/20 04/04/20 04/05/20 06:59 06:59 06:59 Intake Total 3878 2200 903 Output Total 1200 1200 Balance 2678 1000 903 Weight 69.4 kg 72.9 kg General appearance: PRESENT: no acute distress, well-developed, well-nourished - overweight Head exam: PRESENT: atraumatic, normocephalic Eye exam: PRESENT: conjunctiva pink, EOMI, PERRLA. ABSENT: scleral icterus Mouth exam: PRESENT: moist, tongue midline, other - excellent oral care has been provided by nursing Respiratory exam: PRESENT: clear to auscultation gisele, decreased breath sounds - biabsilar (patient positioning/cooperation, symmetrical, unlabored. ABSENT: rales, rhonchi, wheezes Cardiovascular exam: PRESENT: RRR. ABSENT: diastolic murmur, rubs, systolic murmur Pulses: PRESENT: normal dorsalis pedis pul Vascular exam: PRESENT: normal capillary refill Gentrourinary exam: PRESENT: indwelling catheter Extremities exam: PRESENT: full ROM - moves all extremities spontaneously. ABSENT: calf tenderness, clubbing, pedal edema Neurological exam: PRESENT: alert, awake, CN II-XII grossly intact, other - Increased alertness/activity; Makes eye contact, speaks incoherently. ABSENT: motor sensory deficit Skin exam: PRESENT: dry, intact, warm. ABSENT: cyanosis, rash Results Laboratory Results: 04/04/20 06:15 04/04/20 08:30 04/03/20 04/04/20 04/04/20 14:43 01:30 06:15 WBC 7.6 RBC 4.67 Hgb 11.1 L Hct 34.7 L MCV 74 L MCH 23.7 L MCHC 32.0 RDW 17.5 H Plt Count 31 L Sodium 155.2 H 152.9 H Potassium 3.3 L 3.3 L Chloride 132 H 129 H Carbon Dioxide 24 24 Anion Gap 1 L BUN 45 H 31 H Creatinine 0.84 0.79 Est GFR ( Amer) > 60 > 60 Glucose 283 H 203 H Calcium 7.7 L 7.8 L Magnesium Albumin Triglycerides 04/04/20 04/04/20 04/04/20 06:15 06:15 08:30 WBC RBC Hgb Hct MCV MCH MCHC RDW Plt Count Sodium 149.9 H 149.6 H Potassium 3.4 L 3.3 L Chloride 127 H 125 H Carbon Dioxide 25 25 Anion Gap -2 L BUN 28 H 26 H Creatinine 0.77 0.69 Est GFR ( Amer) > 60 > 60 Glucose 263 H 280 H Calcium 7.7 L 7.5 L Magnesium 1.7 Albumin 2.0 L Triglycerides 102 04/01/20 19:30 Blood Blood Culture (PCR) - Final Staphylococcus Species 04/01/20 22:29 Traylor Catheter Urine Culture - Final Proteus Mirabilis Impressions: Head CT 04/01/20 18:56 IMPRESSION: No acute intracranial process is identified. Age-related involutional changes are identified. Presumed old small vessel ischemic changes are seen predominantly in a periventricular distribution. Assessment and Plan - Diagnosis (1) Acute metabolic encephalopathy Is this a current diagnosis for this admission?: Yes Plan: Acute metabolic encephalopathy; multifactorial secondary to profound dehydration, hypernatremia, KAVITHA, UTI, with underlying advanced dementia. Improved; likely approaching baseline. Supportive care. Disease specific management as below. (2) Hypernatremia Is this a current diagnosis for this admission?: Yes Plan: Hypovolemic hyponatremia. Corrected Sodium (r/t hyperglycemia) 159-> 165-> 161-> 162-> 153 Ongoing water loss 199ml/hr Continues to have poor p.o. intake. Continue monitoring serial chemistries and adjusting IV fluids as indicated. Adjusted to 1/2NS @ 200ml/hr Encourage p.o. fluids. Monitor I&Os closely Follow up chemistry (3) Acute kidney injury (nontraumatic) Is this a current diagnosis for this admission?: Yes Plan: Resolved; CR 2.73-> 1.72-> 1.01-> 0.69 Prerenal secondary to dehydration. Continue generous IV fluids. Encourage p.o. fluids. Avoid nephrotoxic medications as able. Follow-up chemistries. 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 Does not appear that the patient is on medications for her diabetes at home Start low dose Lantus; 4 units daily Currently checking Accu-Cheks every 4 hours and providing sliding scale insulin as needed. Hypoglycemia protocol in place. (5) Urinary tract infection Qualifiers: Urinary tract infection type: site unspecified Hematuria presence: with h ematuria Qualified Code(s): N39.0 - Urinary tract infection, site not spe cified; R31.9 - Hematuria, unspecified Is this a current diagnosis for this admission?: Yes Plan: Urinalysis reveals UTI. Blood culture with multiple Gram poitive organisms. Urine cultures show Proteus mirabilis. She is empirically placed on IV Rocephin; day #3 (6) Bacteremia Is this a current diagnosis for this admission?: Yes Plan: Blood culture with multiple Gram positive organisms; likely contaminants. Repeat blood cultures are pending. - Plan Summary Summary: Reviewed AM chemistry, ongoing water losses, and IVF w/ Dr. Ackerman. - Time Time Spent with patient: 35 or more minutes Medications reviewed and adjusted accordingly: Yes Anticipated discharge: SNF - w/ hospice
[2020-04-04] MEDS: INSULIN GLARGINE,HUM.REC.ANLOG 1,000 UNIT/10 ML VIAL SUBCUT SCH (12:16)
[2020-04-04 14:52] LABS: BLOOD UREA NITROGEN 23 mg/dL (7-20); CALCIUM 7.2 mg/dL (8.4-10.2); CHLORIDE 122 mmol/L (98-107); GLUCOSE 226 mg/dL (75-110); POTASSIUM 3.3 mmol/L (3.6-5.0)
[2020-04-04 15:02] LABS: CARBON DIOXIDE 23 mmol/L (22-30)
[2020-04-04 15:03] LABS: ANION GAP 1 (5-19)
[2020-04-04] MEDS: POTASSI CL 20 MEQ/1/2NS 1L 20 MEQ/1,000 ML RTUINJ IV PRN ×2 (17:04→21:59)
[2020-04-05] MEDS: INSULIN LISPRO 100 UNIT/ML 3 ML VIAL SUBCUT SCH ×4 (00:45→18:27)
[2020-04-05] MEDS: POTASSI CL 20 MEQ/1/2NS 1L 20 MEQ/1,000 ML RTUINJ IV PRN ×2 (02:44→08:01)
[2020-04-05 07:05] LABS: BLOOD UREA NITROGEN 13 mg/dL (7-20); GLUCOSE 105 mg/dL (75-110); POTASSIUM 3.6 mmol/L (3.6-5.0)
[2020-04-05 07:12] LABS: CALCIUM 7.1 mg/dL (8.4-10.2); CARBON DIOXIDE 22 mmol/L (22-30); CHLORIDE 118 mmol/L (98-107)
[2020-04-05 07:16] LABS: ANION GAP 2 (5-19)
--- NOTE | 2020-04-05 09:41 | PDOC TRANSFER SUMMARY ---
Impression - Admit/DC Date/PCP Admission Date/Primary Care Provider: 04/01/20 23:25 AGNES LITTLE MD Discharge Date: 04/05/20 - Discharge Diagnosis (1) Acute metabolic encephalopathy Is this a current diagnosis for this admission?: Yes (2) Hypernatremia Is this a current diagnosis for this admission?: Yes (3) Acute kidney injury (nontraumatic) Is this a current diagnosis for this admission?: Yes (4) Hyperglycemia due to type 2 diabetes mellitus Is this a current diagnosis for this admission?: Yes (5) Urinary tract infection Is this a current diagnosis for this admission?: Yes (6) Bacteremia Is this a current diagnosis for this admission?: Yes - Additional Information Resuscitation Status: Do Not Resuscitate Discharge Diet: As Tolerated - encouraged meals and frequent fluids, Regular Discharge Activity: Activity As Tolerated, Balance Activity w/Rest, Supervised Activity Referrals: [facility] [Outside] ANGELO MADDOX MD [NO LOCAL MD] - Follow up as needed Prescriptions: Insulin Lispro [Humalog Insulin (Lispro) 100 unit/mL] 0 - 12 unit SUBCUT Q6 #1 vial Home Medications: Acetaminophen [Feverall] 650 mg RC Q6HP PRN 04/02/20 Acetaminophen [Tylenol 325 mg Tablet] 650 mg PO Q6HP PRN 04/02/20 Ascorbic Acid [Vitamin C 500 mg Tablet] 500 mg PO DAILY 04/02/20 Lactulose [Cephulac Syrup 20 gm/30 ml Udcup] 7.5 ml PO QHS 04/02/20 Lisinopril [Prinivil 5 mg Tablet] 2.5 mg PO DAILY 04/02/20 Multivitamin [Tab-A-Arslan (Multiple Vitamin) Tablet] 1 tab PO DAILY 04/02/20 Potassium Chloride 10 meq PO DAILY 04/02/20 Docusate Sodium [Colace 100 mg Capsule] 100 mg PO BID capsule 04/05/20 Insulin Lispro [Humalog Insulin (Lispro) 100 unit/mL] 0 - 12 unit SUBCUT Q6 #1 vial 04/05/20 History of Present Illiness History of Present Illness: Per H&P by Dr. Gallo: STEVENSON OCHOA is a 69 year old female who presented the emergency room from the detention with a 3-day history of altered mental status. [facility] staff reports patient has been gradually less alert and more lethargic than normal over the last 3 days. No additional associated or accompanying signs and symptoms were reported by the nursing facility staff. Blood work was obtained at the nursing facility and the patient was found to have a sodium of 161 with a glucose of 800. She was subsequently transferred to the hospital for further evaluation and treatment. Patient has severe dementia and is unable to contribute to her medical care. She is noted to have had numerous prior similar episodes with urinary tract infections. In the emergency room she was found to have a moderate hypernatremia and severe hyperglycemia. She was noted to be non-Ketotic but her urine showed significant pyuria. Her renal functions were noted to be elevated and she was subsequently admitted to the hospital for further evaluation and treatment after initiation of serial lactic acid measurements, IV fluids, IV insulin and IV Rocephin. Patient is noted to be DNR/DNI status from her accompanying paperwork. Hospital Course Hospital Course: (1) Acute metabolic encephalopathy Resolved; now at baseline. Acute metabolic encephalopathy; multifactorial secondary to profound dehydration, hypernatremia, KAVITHA, UTI, with underlying advanced dementia. Supportive care. Disease specific management as below. (2) Hypernatremia Resolved. Hypovolemic hyponatremia. Corrected Sodium (r/t hyperglycemia) 159-> 165-> 161-> 162-> 153-> 149.6-> 145.6-> 141.6 ~840 ml p.o. fluids yesterday and 25% of each meal. Serial chemistries and ongoing water loss were checked frequently with IV fluid adjustments as indicated. Encourage p.o. fluids. Monitored I&Os closely (3) Acute kidney injury (nontraumatic) Resolved; CR 2.73-> 1.72-> 1.01-> 0.69 Prerenal secondary to dehydration. Received generous IV fluids. Encouraged p.o. fluids. (4) Hyperglycemia due to type 2 diabetes mellitus A1c is 11.5% Patient is placed on a , cardiac, consistent carb diet. Does not appear that the patient is on medications for her diabetes at home Received low dose Lantus; 4 units daily while on D5W IV fluids. Checked Accu-Cheks every 4 hours and provided sliding scale insulin as needed. Hypoglycemia protocol. Recommend continued SSI at SNF pending hospice admission/transition to [facility]. (5) Urinary tract infection Urinalysis revealed UTI. Blood culture with multiple contaminants. Repeat culture pending. Urine cultures show Proteus mirabilis. Received 3 days of IV Rocephin (6) Bacteremia Blood culture with multiple Gram positive organisms; Staph mitis, Staph epi. Contaminants. Physical Exam Vital Signs: Temp Pulse Resp BP Pulse Ox 99.1 F 78 16 151/80 H 100 04/05/20 08:00 04/05/20 08:00 04/05/20 08:00 04/05/20 08:00 04/05/20 08:00 Intake & Output 04/04/20 04/05/20 04/06/20 06:59 06:59 06:59 Intake Total 2200 3726 1999 Output Total 1200 770 Balance 1000 2956 1999 Weight 72.9 kg 72.9 kg General appearance: PRESENT: no acute distress, well-developed, well-nourished, other - Overweight Head exam: PRESENT: atraumatic, normocephalic Eye exam: PRESENT: conjunctiva pink, EOMI, PERRLA. ABSENT: scleral icterus Mouth exam: PRESENT: moist, tongue midline Teeth exam: PRESENT: poor dentation Neck exam: ABSENT: carotid bruit, full ROM, JVD, lymphadenopathy, meningismus, tenderness, thyromegaly, tracheal deviation, tracheostomy, other Respiratory exam: PRESENT: clear to auscultation gisele, symmetrical, unlabored Cardiovascular exam: PRESENT: RRR, +S1, +S2. ABSENT: diastolic murmur, rubs, systolic murmur Pulses: PRESENT: normal dorsalis pedis pul Vascular exam: PRESENT: normal capillary refill GI/Abdominal exam: PRESENT: normal bowel sounds, soft. ABSENT: distended, guarding, mass, organolmegaly, rebound, tenderness Rectal exam: PRESENT: deferred Gentrourinary exam: PRESENT: indwelling catheter Extremities exam: PRESENT: full ROM - Moves all extremities spontaneously. ABSENT: calf tenderness, clubbing, pedal edema Neurological exam: PRESENT: alert, awake, CN II-XII grossly intact, aphasic, other - ncreased alertness/activity; Makes eye contact, speaks incoherently. ABSENT: oriented to person, oriented to place, oriented to time, oriented to situation, motor sensory deficit Skin exam: PRESENT: dry, intact, warm. ABSENT: cyanosis, rash Results Laboratory Results: WBC 7.6 10^3/uL (4.0-10.5) 04/04/20 06:15 RBC 4.67 10^6/uL (3.72-5.28) 04/04/20 06:15 Hgb 11.1 g/dL (12.0-15.5) L 04/04/20 06:15 Hct 34.7 % (36.0-47.0) L 04/04/20 06:15 MCV 74 fl (80-97) L 04/04/20 06:15 MCH 23.7 pg (27.0-33.4) L 04/04/20 06:15 MCHC 32.0 g/dL (32.0-36.0) 04/04/20 06:15 RDW 17.5 % (11.5-14.0) H 04/04/20 06:15 Plt Count 31 10^3/uL (150-450) L 04/04/20 06:15 Lymph % (Auto) 23.4 % (13-45) 04/01/20 21:04 Coleman % (Auto) 3.0 % (3-13) 04/01/20 21:04 Eos % (Auto) 0.2 % (0-6) 04/01/20 21:04 Baso % (Auto) 0.4 % (0-2) 04/01/20 21:04 Absolute Neuts (auto) 7.0 10^3/uL (1.7-8.2) 04/01/20 21:04 Absolute Lymphs (auto) 2.2 10^3/uL (0.5-4.7) 04/01/20 21:04 Absolute Monos (auto) 0.3 10^3/uL (0.1-1.4) 04/01/20 21:04 Absolute Eos (auto) 0.0 10^3/uL (0.0-0.6) 04/01/20 21:04 Absolute Basos (auto) 0.0 10^3/uL (0.0-0.2) 04/01/20 21:04 Seg Neutrophils % 73.0 % (42-78) 04/01/20 21:04 Platelet Estimate Cancelled 04/01/20 19:15 PT 20.4 SEC (11.4-15.4) H 04/01/20 19:30 INR 1.72 04/01/20 19:30 VBG pH 7.27 (7.30-7.42) L 04/02/20 07:18 VBG pCO2 45.4 mmHg (35-63) 04/02/20 07:18 VBG HCO3 20.6 mmol/L (20-32) 04/02/20 07:18 VBG Base Excess -6.2 mmol/L 04/02/20 07:18 Sodium 141.6 mmol/L (137-145) 04/05/20 05:30 Potassium 3.6 mmol/L (3.6-5.0) 04/05/20 05:30 Chloride 118 mmol/L (98-107) H 04/05/20 05:30 Carbon Dioxide 22 mmol/L (22-30) 04/05/20 05:30 Anion Gap 2 (5-19) L 04/05/20 05:30 BUN 13 mg/dL (7-20) 04/05/20 05:30 Creatinine 0.70 mg/dL (0.52-1.25) 04/05/20 05:30 Est GFR ( Amer) > 60 (>60) 04/05/20 05:30 Est GFR (MDRD) Non-Af > 60 (>60) 04/05/20 05:30 Glucose 105 mg/dL (75-110) 04/05/20 05:30 POC Glucose 106 mg/dL (70-110) 04/05/20 06:19 Hemoglobin A1c % 11.5 % (4.7-6.0) H 04/02/20 07:18 Serum Osmolality 384 mOsm/kg (275-301) H 04/01/20 19:30 Lactic Acid 3.2 mmol/L (0.7-2.1) H 04/02/20 14:04 Calcium 7.1 mg/dL (8.4-10.2) L 04/05/20 05:30 Magnesium 1.7 mg/dL (1.6-2.3) 04/04/20 06:15 Total Bilirubin 0.4 mg/dL (0.2-1.3) 04/01/20 19:30 Direct Bilirubin 0.0 mg/dL (0.0-0.4) 04/01/20 19:30 Neonat Total Bilirubin Not Reportable 04/01/20 19:30 Neonat Direct Bilirubin Not Reportable 04/01/20 19:30 Neonat Indirect Bili Not Reportable 04/01/20 19:30 AST 32 U/L (14-36) 04/01/20 19:30 ALT 46 U/L (<35) H 04/01/20 19:30 Alkaline Phosphatase 100 U/L (38-126) 04/01/20 19:30 Total Protein 6.0 g/dL (6.3-8.2) L 04/01/20 19:30 Albumin 2.0 g/dL (3.5-5.0) L 04/04/20 06:15 Triglycerides 102 mg/dL (<150) 04/04/20 06:15 Urine Color FCO 04/01/20 22:29 Urine Appearance CLOUDY 04/01/20 22:29 Urine pH 5.0 (5.0-9.0) 04/01/20 22:29 Ur Specific [place] 1.023 04/01/20 22:29 Urine Protein 100 mg/dL (NEGATIVE) H 04/01/20 22:29 Urine Glucose (UA) >=500 mg/dL (NEGATIVE) H 04/01/20 22:29 Urine Ketones NEGATIVE mg/dL (NEGATIVE) 04/01/20 22:29 Urine Blood LARGE (NEGATIVE) H 04/01/20 22:29 Urine Nitrite NEGATIVE (NEGATIVE) 04/01/20 22:29 Urine Bilirubin NEGATIVE (NEGATIVE) 04/01/20 22:29 Urine Urobilinogen 2.0 mg/dL (<2.0) H 04/01/20 22:29 Ur Leukocyte Esterase LARGE (NEGATIVE) H 04/01/20 22:29 Urine WBC (Auto) >182 /HPF 04/01/20 22:29 Urine RBC (Auto) 119 /HPF 04/01/20 22:29 U Hyaline Cast (Auto) 37 /LPF 04/01/20 22:29 Urine Bacteria (Auto) 1+ /HPF 04/01/20 22:29 Urine WBC Clumps FEW /HPF 04/01/20 22:29 Squamous Epi Cells Auto 1 /HPF 04/01/20 22:29 Urine Mucus (Auto) FEW /LPF 04/01/20 22:29 Urine Osmolality 488 mOsm/kg (300-900) 04/01/20 22:29 Urine Sodium 127 mmol/L (30-90) H 04/04/20 08:30 Urine Potassium 47.5 mmol/L (22-164) 04/04/20 08:30 Urine Ascorbic Acid 40 (NEGATIVE) H 04/01/20 22:29 COVID-19 Source NASOPHARYNGEAL 04/02/20 20:25 COVID-19 ([place]) NOT DETECTED 04/02/20 20:25 Slides for Path Review Cancelled 04/01/20 19:15 Blood Type O POSITIVE 04/01/20 21:04 Antibody Screen NEGATIVE 04/01/20 21:04 Impressions: Head CT 04/01/20 18:56 IMPRESSION: No acute intracranial process is identified. Age-related involutional changes are identified. Presumed old small vessel ischemic changes are seen predominantly in a periventricular distribution. Plan Plan of Treatment: Discharge [facility], where the patient is a long-term resident, with transition to comfort care/hospice. Recommend follow-up with primary care provider within 1 week. Take medications as prescribed. Recommend assistance with all meals; encourage frequent p.o. fluids. Pending hospice admission; may consider follow-up chemistry in 3 to 5 days. Return to the emergency department as needed for concerning symptoms. --- The patient's son, Miracle Ochoa, was contacted by phone. We reviewed the patient's clinical course, current status, and recommendations to return to [facility] today. We discussed the patient's p.o. intake and likelihood that this will continue to decline with her advancing dementia. He confirms his interest in her transitioning into hospice services. Goals: Comfort care/hospice Time Spent: Greater than 30 Minutes Stroke Is this a Stroke Patient?: No Acute Heart Failure - Is this a Heart Failure Patient?: No
[2020-04-05] MEDS: INSULIN GLARGINE,HUM.REC.ANLOG 1,000 UNIT/10 ML VIAL SUBCUT SCH (10:12)
[2020-04-05] MEDS: DOCUSATE SODIUM 100 MG CAPSULE PO SCH ×2 (10:13→17:09)
[2020-04-05] MEDS: PANTOPRAZOLE SODIUM 40 MG VIAL IV SCH ×2 (10:24→22:32)
[2020-04-05] MEDS: CEFTRIAXONE 1 GM/D5W RTU 1 GM/50 ML RTUPB IV SCH (10:26)
[2020-04-06] MEDS: INSULIN LISPRO 100 UNIT/ML 3 ML VIAL SUBCUT SCH ×3 (00:44→12:07)
[2020-04-06] MEDS: POTASSI CL 20 MEQ/1/2NS 1L 20 MEQ/1,000 ML RTUINJ IV PRN (04:37)
[2020-04-06] MEDS: DOCUSATE SODIUM 100 MG CAPSULE PO SCH (10:39)
[2020-04-06] MEDS: CEFTRIAXONE 1 GM/D5W RTU 1 GM/50 ML RTUPB IV SCH (10:48)
[2020-04-06] MEDS: PANTOPRAZOLE SODIUM 40 MG VIAL IV SCH (10:49)
[2020-04-06] MEDS: INSULIN GLARGINE,HUM.REC.ANLOG 1,000 UNIT/10 ML VIAL SUBCUT SCH (10:51)
[2020-04-06 13:14] VITALS: BP 131/60
== END 2020-04-06 15:40 | DRG 682 ==
LOC: ER 18:50 → EH 23:25 → 4W 04-02 02:10
PROVIDERS: ADMIT Emergency Medicine; ATTEND Family Medicine
PROC: 06HN33Z Insertion of Infusion Device into Left Femoral Vein, Percutaneous Approach (ICD-10-PCS; principal; 2020-04-03)
DX: N17.9 Acute kidney failure, unspecified (principal); G93.41 Metabolic encephalopathy; E87.0 Hyperosmolality and hypernatremia; N39.0 Urinary tract infection, site not specified; E11.65 Type 2 diabetes mellitus with hyperglycemia; F03.90 Unspecified dementia, unspecified severity, without behavioral disturbance, psychotic disturbance, mood disturbance, and anxiety; I10 Essential (primary) hypertension; Z66 Do not resuscitate; R31.9 Hematuria, unspecified; Z79.4 Long term (current) use of insulin; E66.9 Obesity, unspecified; E86.0 Dehydration; B96.4 Proteus (mirabilis) (morganii) as the cause of diseases classified elsewhere; Z20.828 Contact with and (suspected) exposure to other viral communicable diseases; Z79.899 Other long term (current) drug therapy; Z87.440 Personal history of urinary (tract) infections
CPT/HCPCS: 36415; 70450; 80048; 80053; 81001; 82040; 82803; 82962; 83036; 83605; 83735; 83930; 83935; 84133; 84300; 84478; 85025; 85027; 85610; 86850; 86900; 86901; 87040; 87077; 87086; 87088; 87150; 87186; 87635; 93005; 93010; 96361; 96365; 99291; C9113; C9803; J0696; J1642; J1644; J1815; J3480; J3490; J7030; J7060; J7120